=== PATIENT | female | born 1995 | race Caucasian/White ===

== ENCOUNTER 2018-01-02 09:40 | Emergency (ER) | payer OTHER ==
[~2018-01-02] VITALS: Ht 160 cm; Wt 57.0 kg
[~2018-01-02 09:40] MED LIST: BCPILLS PO
[2018-01-02 09:42] VITALS: TEMP 36.7; Ht 160 cm; Wt 57.0 kg
[2018-01-02] MEDS ORDERED: SODIUM CHLORIDE 0.9% 500ML 500 ML IV STA (10:23)
[2018-01-02] MEDS ORDERED: ONDANSETRON INJ 2 MG/ML 2 ML VIAL IV STA (10:23)
[2018-01-02] MEDS ORDERED: KETOROLAC TROMETHAMINE 30 MG/ML VIAL IV STA (10:23)
[2018-01-02] MEDS ORDERED: ACETAMINOPHEN 500 MG TAB PO STA (10:23)
--- NOTE | 2018-01-02 10:35 | EMERGENCY ROOM VISIT NOTE ---
History Report prepared by Chuckie: Alexandr Briceño Under the Supervision of: Dr. Jacek Galdamez M.D. First contact with patient: 10:06 Chief Complaint: FLU LIKE SX Stated Complaint: FLU LIKE SYMPTOMS, COUGHING, NAUSEA History of Present Illness The patient is a 22 year old white female without a past medical history who presents to the ED with a cc of productive cough with green sputum beginning 1 week ago. Positive nausea, sinus congestion, and fatigue. Negative fever, chills , chest pain, shortness of breath, vomiting, abdominal pain, or abnormal urinary symptoms. The patient has been in contact over this time with her boyfriend who is exhibiting similar symptoms. She has been using Vicki Selter cold and flu with some mild relief. Her only past surgical history was a wisdom teeth removal. She denies any other medical problems or known medication allergies. Her last menstrual period was three to four weeks ago and was normal. She denies any recent travel or antibiotic use. She denies any recent spicy or citrus foods or alcohol use. Source of History: patient Onset: 1 week ago Position: other (Respiratory System) Symptom Intensity: moderate Quality: other (Productive cough) Timing: constant Associated Symptoms: + nausea, + fatigue, No fevers, No chills, No chest pain, No SOB, No vomiting, No abdominal pain, No urinary symptoms Note: She is experiencing sinus congestion. Review of Systems See HPI for pertinent positives and negatives. A total of ten systems were reviewed and were otherwise negative. Past Medical & Surgical Medical Problems: (1) Pneumonia Surgical Problems: (1) No history of previous surgery Family History FH: cancer Social History Smoking Status: Never Smoker Smokeless Tobacco Use: No Alcohol Use: occasionally Marital Status: single Housing Status: lives with family Occupation Status: [employer] student Current/Historical Medications Scheduled Control Pills ( Control Pills), 1 TAB PO DAILY Scheduled PRN Ondansetron Hcl (Zofran), 4 MG PO Q8H PRN for Nausea Allergies Coded Allergies: Bacitracin (Unverified Allergy, Intermediate, RASH, 01/02/18) Benzophenone (Unverified Allergy, Intermediate, RASH, 01/02/18) Betaine (Unverified Allergy, Intermediate, RASH, 01/02/18) Chlorhexidine (Unverified Allergy, Intermediate, RASH, 01/02/18) Cocamidopropyl (Unverified Allergy, Intermediate, RASH, 01/02/18) Formaldehyde (Unverified Allergy, Intermediate, RASH, 01/02/18) Uncoded Allergies: AMERCHOL L101 (Allergy, Intermediate, RASH, 01/02/18) PATIENT HAD ALLERGY TESTING DONE. THIS WAS ON HER LIST OF ALLERGIC REACTIONS. AMIDOAMINE (Allergy, Intermediate, RASH, 01/02/18) PATIENT HAD ALLERGY TESTING DONE. THIS WAS ON HER LIST OF ALLERGIC REACTIONS. DIGUCONATE (Allergy, Intermediate, RASH, 01/02/18) PATIENT HAD ALLERGY TESTING DONE. THIS WAS ON HER LIST OF ALLERGIC REACTIONS. Physical Exam Vital Signs Date Time Temp Pulse Resp B/P (MAP) Pulse Ox O2 Delivery O2 Flow Rate FiO2 01/02/18 11:52 84 20 108/66 98 Room Air 01/02/18 11:52 84 20 108/66 98 01/02/18 09:42 36.7 70 18 115/73 99 Room Air Physical Exam GENERAL: Awake, alert, well-appearing, NAD HENT: Normocephalic, atraumatic. No pharyngeal or uvular swelling or deviation. EYES: Normal conjunctiva. Sclera non-icteric. NECK: Supple. No nuchal rigidity. FROM. No stridor or signs of meningismus. RESPIRATORY: CTAB, no rhonchi, wheezing, crackles CARDIAC: RRR, no MRG ABDOMEN: Soft, NTND, BS+ MSK: No chest wall TTP, no LE edema NEURO: GCS 15, CN 2-12 intact, moves all 4s on command SKIN: No rash or jaundice noted. Medical Decision & Procedures ER Provider Diagnostic Interpretation: Radiology results as stated below per my review and radiologist interpretation: CHEST 2 VIEWS ROUTINE CLINICAL HISTORY: cough, fever, chills COMPARISON STUDY: No previous studies for comparison. FINDINGS: Lung volumes are normal. No pneumothorax or pleural effusion is noted. There is no consolidation. Cardiac size is normal. Mediastinal contours are normal. There is no evidence for pulmonary edema. IMPRESSION: No acute cardiopulmonary findings. Electronically signed by: Declan Evangelista M.D. 01/02/2018 11:27 AM Dictated Date/Time: 01/02/2018 11:26 AM Laboratory Results Test 01/02/18 10:04 01/02/18 10:43 Influenza Type A Antigen Neg for Influ A (NEG) Influenza Type B Antigen Neg for Influ B (NEG) Urine Color YELLOW Urine Appearance CLOUDY (CLEAR) Urine pH 5.5 (4.5-7.5) Urine Specific [place] 1.019 (1.000-1.030) Urine Protein NEG (NEG) Urine Glucose (UA) NEG (NEG) Urine Ketones NEG (NEG) Urine Occult Blood NEG (NEG) Urine Nitrite NEG (NEG) Urine Bilirubin NEG (NEG) Urine Urobilinogen NEG (NEG) Urine Leukocyte Esterase TRACE (NEG) Urine WBC (Auto) 1-5 /hpf (0-5) Urine RBC (Auto) 0-4 /hpf (0-4) Urine Hyaline Casts (Auto) 1-5 /lpf (0-5) Urine Epithelial Cells (Auto) >30 /lpf (0-5) Urine Bacteria (Auto) NEG (NEG) Urine Test NEG (NEG) Laboratory results reviewed by me Medications Administered Medications (Trade) Dose Ordered Sig/Kaelyn Route Start Time Stop Time Status Last Admin Dose Admin Acetaminophen (Tylenol Tab) 1,000 mg NOW STAT PO 01/02/18 10:23 01/02/18 10:25 DC 01/02/18 10:32 1,000 MG Ketorolac Tromethamine (Toradol Inj) 30 mg NOW STAT IV 01/02/18 10:23 01/02/18 10:25 DC 01/02/18 10:33 30 MG Sodium Chloride 500 ml @ 999 mls/hr Q31M STAT IV 01/02/18 10:23 01/02/18 10:53 DC 01/02/18 10:32 999 MLS/HR Ondansetron HCl (Zofran Inj) 4 mg NOW STAT IV 01/02/18 10:23 01/02/18 10:25 DC 01/02/18 10:32 4 MG ED Course 1006: The patient was evaluated in room C10. A complete history and physical exam was performed. 1150: I reevaluated the patient. Discussed results and discharge instructions: She verbalized understanding and agreement. The patient is ready for discharge. Medical Decision The patient is a 22 year old white female without a past medical history who presents to the ED with a cc of productive cough with green sputum beginning 1 week ago. Positive nausea, sinus congestion, and fatigue. Negative fever, chills , chest pain, shortness of breath, vomiting, abdominal pain, or abnormal urinary symptoms. Differential diagnosis: Etiologies such as viral syndrome, otitis, pharyngitis, pneumonia, influenza, meningitis, urinary tract infection, sepsis, bacteremia, as well as others were entertained. Patient was seen and evaluated the bedside. Patient was complain of some productive cough beginning approximately 1 week prior. Patient was also complaining some mild nausea without vomiting. Of note the patient's boyfriend has had some similar symptoms and is currently in the ER being treated and evaluated. Patient otherwise is fairly well-appearing and has stable vital signs. No fever noted. The patient has a benign abdominal exam. I do not believe that she warrants any blood work or imaging. Patient did have a urinalysis and urine test completed. Patient's urine test negative. Urinalysis negative for infection. Patient's chest x-ray was negative acute. He was negative. Patient was instructed to continue good hand hygiene, avoidance of alcohol and caffeinated beverages, and continuing liberal fluid hydration. Patient was told that her appetite may improve with time. Patient was deemed suitable for outpatient follow-up and treatment at this time. Again I do not believe the patient requires any further imaging or blood work as the patient is very well-appearing with stable vital signs. Patient likely has a viral illness. Patient was given strict follow-up, discharge, and return precautions. All questions were answered. Patient was deemed suitable for outpatient follow-up at this time. Patient agreed with the plan of care and was safely discharged home. Medication Reconcilliation Current Medication List: was personally reviewed by me Blood Pressure Screening Patient's blood pressure: Normal blood pressure Blood pressure disposition: Did not require urgent referral Impression Primary Impression: Influenza-like symptoms Additional Impression: Acute bronchitis Scribe Attestation The scribe's documentation has been prepared under my direction and personally reviewed by me in its entirety. I confirm that the note above accurately reflects all work, treatment, procedures, and medical decision making performed by me. Departure Information Dispostion Home / Self-Care Prescriptions Ondansetron Hcl (ZOFRAN) 4 Mg Tab 4 MG PO Q8H Y for Nausea, #12 TAB Prov: Jacek Galdamez M.D. 01/02/18 Referrals No Doctor, Assigned (PCP) [facility] Forms HOME CARE DOCUMENTATION FORM, IMPORTANT VISIT INFORMATION Patient Instructions Deep Coughing, ED Fever Control, ED Nausea Vomiting, My [facility] Additional Instructions Please return to the emergency department if you have worsening or recurrent symptoms not amenable to at-home treatment. Please call for a follow-up appointment with her primary care physician. Please take your medications as prescribed. If you have other concerns and/or complaints please feel free to also call your primary care physician's office or return the ED for further evaluation, management, and treatment. You may take 600 mg Ibuprofen every 6 hours as needed for pain with food. You may take tylenol 1000 mg every 6 hours as needed for pain. You may take motrin and tylenol separately or at the same time. Take your medications as prescribed. Consider tessalon perrles or cepacol for sore throat/cough suppressant. Mucinex can be helpful to help you expectorate. Follow up with S and/or ER as needed. You have been examined and treated today on an emergency basis only. This is not a substitute for, or an effort to provide, complete comprehensive medical care. It is impossible to recognize and treat all injuries or illnesses in a single emergency department visit. It is therefore important that you follow up closely with [facility], your PCP, and/or your specialist(s). Call as soon as possible for an appointment. Thank you for your time and consideration. I look forward to speaking with you again soon. Please don't hesitate to call us if you have any questions. Problem Qualifiers Additional Impression: Acute bronchitis Bronchitis organism: unspecified organism Qualified Codes: J20.9 - Acute bronchitis, unspecified
[2018-01-02 11:00] LABS: INFLUENZA B ANTIGEN Neg for Influ B (NEG)
--- NOTE | 2018-01-02 11:28 | DIAGNOSTIC IMAGING REPORT ---
CHEST 2 VIEWS ROUTINE CLINICAL HISTORY: cough, fever, chills COMPARISON STUDY: No previous studies for comparison. FINDINGS: Lung volumes are normal. No pneumothorax or pleural effusion is noted. There is no consolidation. Cardiac size is normal. Mediastinal contours are normal. There is no evidence for pulmonary edema. IMPRESSION: No acute cardiopulmonary findings. Electronically signed by: Decaln Evangelista M.D. 01/02/2018 11:27 AM Dictated Date/Time: 01/02/2018 11:26 AM
[2018-01-02] MEDS ORDERED: ONDA4TAB46 PO (11:40)
[2018-01-02 11:52] VITALS: BP 108/66; PULSE 84; O2SAT 98
== END 2018-01-02 11:56 | disposition home or self-care (01) ==
LOC: C.EDB 09:42 → C.EDC 11:56
DX: J20.9 Acute bronchitis, unspecified (principal); R05 Cough; R11.0 Nausea; R09.81 Nasal congestion; R53.83 Other fatigue; Z87.01 Personal history of pneumonia (recurrent); Z80.9 Family history of malignant neoplasm, unspecified; Z79.3 Long term (current) use of hormonal contraceptives; Z88.1 Allergy status to other antibiotic agents; Z88.8 Allergy status to other drugs, medicaments and biological substances